=== PATIENT | female | born 1945 | race Caucasian/White ===

== ENCOUNTER → 2025-04-30 | Outpatient (CLI) | payer MEDICARE, OTHER, SELFPAY ==
--- NOTE | 2025-04-30 09:00 | XR_ITS ---
Examination: Screening digital mammography, bilateral Computer aided detection 3-D breast Tomosynthesis, bilateral Date and time of exam: April 30, 2025, 0843 hours, no priors Indication: Screening Technique: Nonmagnified MLO, CC views of the breasts to been obtained, reconstructed from 3-D Tomosynthesis images. R2 computer aided detection program utilized for evaluation of suspicious masses and/or abnormal calcifications. 3-D Tomosynthesis images obtained. Findings: The breasts are heterogeneously dense, which may obscure small masses 10 mm nodule upper outer right breast Impression: BI-RADS Category 0: Incomplete: Need additional imaging evaluation Recommend follow-up spot tomographic views of 10 mm nodule upper outer right breast as well as right breast sonography to complete the workup
== END | disposition home or self-care (01) ==
PROVIDERS: Referring Provider Internal Medicine; Visit Provider Internal Medicine
DX: Z12.31 Encounter for screening mammogram for malignant neoplasm of breast (principal); N63.11 Unspecified lump in the right breast, upper outer quadrant; R92.8 Other abnormal and inconclusive findings on diagnostic imaging of breast
CPT/HCPCS: 77063; 77067

== ENCOUNTER 2025-05-21 15:30 | Emergency (ER) | payer MEDICARE, OTHER, SELFPAY ==
[2025-05-21] VITALS (11 sets, daily range): BP systolic 95–152; BP diastolic 64–80; PULSE 43–171; RESP 9–20; TEMP 36.6–36.8; O2SAT 95–100
[2025-05-21] MEDS: DILTIAZEM INJ 5 MG/ML VIAL 5 ML 15 MG IV (16:29)
[2025-05-21] MEDS: SODIUM CHLORIDE 0.9% 1000 ML 1,000 ML 999 ML IV (16:30)
--- NOTE | 2025-05-21 16:35 | XR_ITS ---
EXAMINATION: AP chest single view TECHNIQUE: AP portable upright chest single view Date and time: May 21, 2025, 1636 hours,. INDICATIONS: Chest pain shortness of breath today. FINDINGS: Minor prominence cardiac contour Enlarged ectatic thoracic aorta. Mild vascular congestion. Minor subsegmental atelectasis left base. No pneumonia or pulmonary edema. Prominent osteopenia IMPRESSION: No pneumonia or pulmonary edema.
--- NOTE | 2025-05-21 16:43 | PD.EDDIZZY ---
ED Dizzyness RME/HPI General Chief Complaint: Shortness of Breath/Dyspnea Stated Complaint: SOB, CP, DIZZINESS Time Seen by Provider: 05/21/25 15:37 Arrival date/time: 05/21/25 15:30 RME / HPI RME / HPI Narrative: 79 year old female presents to the ED for evaluation of feeling light headed and palpitations beginning 2 days ago and worsening today. Accompanied by chest pressure she rates as moderate. Reportedly the palpitations were in and out and occurring more frequently today. States she had experienced similar palpitations 3 months ago and was evaluated at [facility] in [place] where she was told her symptoms were due to severe heart burn . No further work-up performed since. No other associated symptoms reported. Related Data Allergies Allergy/AdvReac Type Severity Reaction Status Date / Time No Known Allergies Allergy Verified 05/21/25 15:33 Review of Systems Review of Systems Systems Reviewed: All systems reviewed, normal except as documented Past Medical History Social History SMOKING STATUS: Never smoker ED Exam Narrative Physical exam: GENERAL APPEARANCE: alert and oriented x 4, well-developed, well-nourished, no acute distress HEENT: Normocephalic, atraumatic; pupils equal, round, reactive to light; EOMI; mucous membranes pink, moist; oropharynx clear NECK: Supple LUNGS: CTABL; no wheezes, no rales, no rhonchi HEART: Tachycardic; normal S1, S2; no murmurs ABDOMEN: non distended; normal BS; soft, no tenderness, no guarding, no rebound; no masses, no organomegaly, no hernia BACK: no CVA tenderness EXTREMITIES: atraumatic; no edema NEUROLOGIC: awake; alert and oriented x4; cranial nerves II-XII grossly intact; no focal sensory or motor deficits PSYCHIATRIC: appropriate mood and affect SKIN: warm, dry, normal color; no rashes Course Course Course Narrative: 1630 Patient given 15mg IVP Cardizem and patient converted to normal sinus rhythm, rate 60s on telemetry. 1800: Patient signed out to Dr. Haywood pending reevaluation and final disposition. Quality Measures none Orders Category Date Time Status Lawn Service Manager NOW Care 05/21/25 16:35 Completed Insert IV NOW Care 05/21/25 16:00 Completed XR chest 1V portable Stat Exams 05/21/25 16:35 Completed B-Type Natriuretic Peptide Stat Lab 05/21/25 16:20 Completed CBC Stat Lab 05/21/25 16:20 Completed Comprehensive Metabolic Panel Stat Lab 05/21/25 16:20 Completed Lipase Stat Lab 05/21/25 16:20 Completed Magnesium Stat Lab 05/21/25 16:20 Completed Partial Thromboplastin Time Stat Lab 05/21/25 16:20 Completed Prothrombin Time with INR Stat Lab 05/21/25 16:20 Completed Thyroid Stimulating Hormone Stat Lab 05/21/25 16:20 Completed Troponin I Stat Lab 05/21/25 16:20 Completed UA, C/S IF [Urinalysis, C/S if Indicated] Stat Lab 05/21/25 18:58 Completed Urine Culture Stat Lab 05/21/25 18:58 Received Adenosine 6mg Inj [Adenocard Inj] Med 05/21/25 16:03 Discontinued 12 mg IVP X1 ONE Adenosine 6mg Inj [Adenocard Inj] Med 05/21/25 16:02 Discontinued 6 mg IVP X1 ONE DILTIAZEM in NS 100 MG Med 05/21/25 18:09 Discontinued 100 mg in 100 ml IV 5 mg/hr Diltiazem Inj [Cardizem Inj] Med 05/21/25 16:23 Discontinued 15 mg IV X1 ONE Diltiazem Inj [Cardizem Inj] Med 05/21/25 16:27 Discontinued 25 mg .ROUTE .STK-MED ONE Sodium Chloride 0.9% 1000 ml [Ns] 1,000 ml Med 05/21/25 16:04 Discontinued IV 999 mls/hr Vital Signs Vital signs: Vital Signs Temperature 97.9 F 05/21/25 16:00 Pulse Rate 171 H 05/21/25 16:00 Respiratory Rate 20 05/21/25 16:00 Blood Pressure 95/65 05/21/25 16:00 Pulse Oximetry (%) 98 05/21/25 16:00 Oxygen Delivery Method Room Air 05/21/25 16:00 Pulse ox is 98% on room air which is adequate. Dizziness MDM Narrative MDM Narrative:: Kallie pAple am scribing for and in the presence of Dr. Pennington. Patient data External records reviewed:: [facility] previous records Clinical information provided by:: patient Social determinants that could affect healthcare access:: none Patient has the following chronic illnesses:: None reported?? How is presenting disease/condition affected by chronic disease/condition?: no chronic disease Evaluation data The following diagnostics were reviewed and interpreted by me:: lab results, radiology exam(s) and EKG tracing(s) (EKG #1 showed SVT, rate 169, no STEMI. EKG #2 showed atrial flutter with RVR, rate 150s, no STEMI. EKG #3 after cardizem shows normal sinus rhythm, rate 68, no STEMI. ) Lab and/or radiology exams considered but not ordered:: None Interpretation Summary: Ordering Physician: Terri Pennington MD Date of Service: 05/21/25 Procedure(s): XR chest 1V portable Accession Number(s): [id number] cc: Kyle Cervantes MD; Terri Pennington MD~ EXAMINATION: AP chest single view TECHNIQUE: AP portable upright chest single view Date and time: May 21, 2025, 1636 hours,. INDICATIONS: Chest pain shortness of breath today. FINDINGS: Minor prominence cardiac contour Enlarged ectatic thoracic aorta. Mild vascular congestion. Minor subsegmental atelectasis left base. No pneumonia or pulmonary edema. Prominent osteopenia IMPRESSION: No pneumonia or pulmonary edema. Dictated By: Kyle Cervantes MD Signed By: <Electronically signed by Kyle Cervantes MD in OV> 05/21/25 1701 Medications / Prescriptions Medications or Prescriptions considered but not ordered:: None Medication administrations:: Medication Administration History Discontinued Medications Adenosine (Adenosine Inj 3 Mg/Ml Vial) 6 mg IVP X1 ONE Stop: 05/21/25 16:03 Last Admin: 05/21/25 17:08 Dose: Not Given Documented By: BALJIT Non-Admin Reason: Cancelled by Provider Adenosine (Adenosine Inj 3 Mg/Ml Vial) 12 mg IVP X1 ONE Stop: 05/21/25 16:04 Last Admin: 05/21/25 17:08 Dose: Not Given Documented By: BALJIT Non-Admin Reason: Cancelled by Provider Diltiazem HCl (Diltiazem Inj 5 Mg/Ml Vial 5 Ml) 15 mg IV X1 ONE Stop: 05/21/25 16:24 Last Admin: 05/21/25 16:29 Dose: 15 mg Documented By: NEDRA Diltiazem HCl (Diltiazem Inj 5 Mg/Ml Vial 5 Ml) Confirm Administered Dose 25 mg .ROUTE .STK-MED ONE Stop: 05/21/25 16:28 Last Admin: 05/21/25 16:34 Dose: Not Given Documented By: NEDRA Non-Admin Reason: Duplicate Medication on eMAR Sodium Chloride (Ns) 1,000 mls @ 999 mls/hr IV .Q1H1M ONE Stop: 05/21/25 17:04 Last Infusion: 05/21/25 18:47 Dose: Infused Documented By: Admin: 05/21/25 16:30 Dose: 999 mls/hr Documented By: LF Diltiazem/Sodium Chloride (Diltiazem In Ns 100 Mg) 100 mg in 100 mls @ 5 mls/hr IV .Q20H NADEEM Stop: 06/20/25 18:08 Last Admin: 05/21/25 20:16 Dose: Not Given Documented By: MANUEL Non-Admin Reason: Patient Refused See above Consultations Consultation(s) initiated? (list below): No Diagnosis Most likely diagnosis given after review of the tests above:: New onset atrial flutter Admission Indicated Admission indicated?: not indicated Explain why admission is indicated or not indicated:: signed out to Dr. Haywood pending final disposition Admission Request Was there a request for admission?: No Disposition Plan Disposition Plan: other (specify) (signed out to Dr. Haywood ) Critical Care Time Critical Care Time Critical Care Time: Yes Total Critical Care Time (min.): 35 Attestation: The high probability of sudden, clinically significant deterioration in the patient's condition required the highest level of my preparedness to intervene urgently. The services I provided to this patient were to treat and/or prevent clinically significant deterioration. Services included the following: chart data review, reviewing nursing notes and/or old charts, documentation time, retail wireless sales consultant collaboration regarding findings and treatment options, medication orders and management, direct patient care, vital sign assessments and ordering, interpreting and reviewing diagnostic studies and lab tests. Aggregate critical care time includes only time during which I was engaged in work directly related to the patient's care, as described above, whether at bedside or elsewhere in the Emergency Department. It did not include time spent performing other reported procedures or the services of residents, students, nurses or physician assistants. Discharge Plan Plan Patient Disposition: HOME (Self Care) Prescriptions/Referrals Referrals: No Primary/Family,Physician [Primary Care Provider] - In 1 week Problem List Clinical Impression: Atrial fibrillation Patient/Caregiver Discharge Instructions Discharge Activity: activity as tolerated Education Materials: ED Atrial Fibrillation Additional Instructions: Discharge instructions from Dr. Haywood: 1. Today, you were treated for atrial fibrillation. 2. Read attached handout about atrial fibrillation. 3. You were seen by Dr. Issa (our utilities estimator and drafter) and he recommended outpatient follow-up with him. Because atrial fibrillation resolved with medication. 4. See Dr. Issa on 05/23/2025 for recheck and further care. [address] ? Ask to check the final urine culture results from today. 5. Seek immediate medical care with worsening or with any concerns.?? Print Language: Mohawk Stand Alone Forms: [employer] Award Info., Patient Portal Info Letter
[2025-05-21 17:13] LABS: Basophils # (Auto) 0.1 Thou/mm3 (0.0-0.2); Basophils % (Auto) 1 % (0-2.5); Eosinophils # (Auto) 0.2 Thou/mm3 (0.0-0.5); Eosinophils % (Auto) 2 % (0-10); Hematocrit 40.7 % (36.0-46.0); Hemoglobin 13.9 g/dL (12.0-16.0); Immature Granulocytes Auto 0.03 Thou/mm3 (0.00-0.00); Lymphocytes # (Auto) 2.4 Thou/mm3 (1.0-4.8); Lymphocytes % (Auto) 24 % (10-50); Mean Corpuscular HGB Conc 34.2 g/dl (31.0-37.0); Mean Corpuscular Hemoglobin 31.4 pg (25.0-35.0); Mean Corpuscular Volume 92 fL (80-100); Monocytes # (Auto) 0.9 Thou/mm3 (0.0-0.8); Monocytes % (Auto) 9 % (0-12); Neutrophils # (Auto) 6.5 Thou/mm3 (1.8-7.7); Neutrophils % (Auto) 65 % (37-80); Nucleated Red Blood Cell # 0.00 Thou/mm3 (0.00-0.00); Nucleated Red Blood Cell % 0 /100 WBC (0); Platelet Count 343 Thou/mm3 (140-440); RDW Standard Deviation 42.7 fL (36.4-46.3); Red Blood Count 4.43 Miln/mm3 (4.00-5.20); White Blood Count 10.0 Thou/mm3 (3.6-11.0)
[2025-05-21 17:20] LABS: INR 1.0 (0.9-1.3); Partial Thromboplastin Time 25.5 Seconds (22.0-36.0); Prothrombin Time 10.5 Seconds (9.0-12.2)
[2025-05-21 17:26] LABS: Alanine Aminotransferase 23 U/L (10-49); Albumin, Serum 4.5 gm/dL (3.4-4.8); Albumin/Globulin Ratio 1.8 (1.2-2.2); Alkaline Phosphatase 67 U/L (46-116); Anion Gap 15 (7-16); Aspartate Amino Transferase 31 U/L (0-34); BUN/Creatinine Ratio 19 Ratio (12-20); Bilirubin,Total 0.3 mg/dL (0.3-1.2); Blood Urea Nitrogen 21 mg/dL (9-23); Calcium 9.7 mg/dL (8.3-10.6); Calcium (Corrected) 9.7 mg/dL (8.5-10.1); Carbon Dioxide 23.4 mMol/L (20.0-31.0); Chloride 104 mMol/L (98-107); Creatinine (Component) 1.1 mg/dL (0.6-1.3); Globulin 2.5 gm/dL (2.3-3.5); Glucose 141 mg/dL (74-106); Lipase 38 U/L (12-53); Magnesium 2.0 mg/dL (1.6-2.6); Osmolality,Calculated 288 (275-295); Potassium 4.0 mMol/L (3.4-5.1); Sodium 142 mMol/L (136-145); Total Protein 7.0 gm/dL (5.7-8.2); Troponin I < 0.020 ng/mL (0.0-0.045); eGFR 52 See Note
[2025-05-21 17:53] LABS: B-Type Natriuretic Peptide 264 pg/mL (0-100)
[2025-05-21 18:41] LABS: Thyroid Stimulating Hormone 5.07 uIU/mL (0.55-4.78)
[2025-05-21 19:11] LABS: Collection Type, Urine Clean Catch
[2025-05-21 19:21] LABS: Bacteria,Urine Rare; Bilirubin,Urine Negative (Negative); Blood,Urine Negative (Negative); Clarity,Urine Clear (Clear/Hazy); Color,Urine Yellow (Lt Yel-Yel); Glucose, Urine Negative (Negative); Hyaline Casts,Urine 1 /hpf (0-1); Ketones,Urine Negative (Negative); Leukocyte Esterase,Urine Positive (Negative); Nitrite,Urine Positive (Negative); PH,Urine 7.0 (5.0-7.0); Protein,Urine Negative (Neg - Trace); RBC,Urine 2 /hpf (0-3); Specific Gravity,Urine 1.014 (1.001-1.035); Squamous Epithelial Cell,Urine 1 /hpf (0-5); Urobilinogen,Urine Negative mg/dL (0.0-1.0); WBC,Urine 9 /hpf (0-5)
--- NOTE | 2025-05-21 19:21 | PD.EDADDENDU ---
Emergency Room Addendum Addendum Narrative: I took over the care from Dr. URIBE at 6 PM on 05/21/2025. See previous notes for complete H&P and ED course. I reviewed all diagnostic test results. Diagnoses include: Atrial fibrillation (resolved with Cardizem by Dr. UIRBE) I discussed the case with our strategic sourcing specialist, Dr. Issa.? About the presentation and exam and diagnostics and treatments here.? And possible need of further care in the hospital.? Recommended outpatient follow-up with him. Recommended no outpatient medication due to bradycardia after Cardizem. Based on my best medical judgment, made decision no further evaluation or treatment indicated at this time.? Patient understands and agrees to the discharge instructions customized and printed, see below. Discharge instructions from Dr. Haywood: 1. Today, you were treated for atrial fibrillation. 2. Read attached handout about atrial fibrillation. 3. You were seen by Dr. Issa (our strategic sourcing specialist) and he recommended outpatient follow-up with him. Because atrial fibrillation resolved with medication. 4. See Dr. Issa on 05/23/2025 for recheck and further care. [address] ? Ask to check the final urine culture results from today. 5. Seek immediate medical care with worsening or with any concerns.?? Jose Haywood MD
[2025-05-21 19:22] LABS: Culture Indicated,Urine Yes
== END 2025-05-21 20:19 | disposition home or self-care (01) ==
PROVIDERS: Emergency Medicine; Emergency Provider Emergency Medicine
DX: I48.91 Unspecified atrial fibrillation (principal)
CPT/HCPCS: 36415; 71045; 80053; 81001; 83690; 83735; 83880; 84443; 84484; 85025; 85610; 85730; 87077; 87086; 87186; 96360; 96361; 99283; J3490; J7030

== ENCOUNTER → 2025-07-10 | Outpatient (CLI) | payer MEDICARE, OTHER, SELFPAY ==
--- NOTE | 2025-07-10 09:45 | XR_ITS ---
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 Findings: Normal gallbladder Normal common bile duct 0.3 cm Pancreatic head 2.1 cm Liver 14.9 cm fatty infiltration 13 x 14 mm liver cyst Normal hepatopetal portal venous flow Patent IVC IMPRESSION: Normal gallbladder Normal common bile duct Liver normal size fatty infiltration
== END | disposition home or self-care (01) ==
LOC: CDIM 09:31
PROVIDERS: PCP Internal Medicine; Referring Provider Internal Medicine; Visit Provider Internal Medicine
DX: K76.0 Fatty (change of) liver, not elsewhere classified (principal)
CPT/HCPCS: 76705